=== PATIENT | female | born 1990 | race American Indian/Alaskan Native ===

== ENCOUNTER → 2018-11-12 | Outpatient (CLI) | payer BC ==
[~2018-11-12] MED LIST: CYCL10 PO; HYDACE5325 PO; NAPR500 PO
== END | disposition home or self-care (01) ==
LOC: PLD 10:24 → LAB SHORT 10:24
DX: D22.4 Melanocytic nevi of scalp and neck (principal)
CPT/HCPCS: 88305

== ENCOUNTER → 2019-02-16 | Outpatient (CLI) | payer BC, OTHER | END | disposition home or self-care (01) | LOC: PLD 14:22 → LAB SHORT 14:22 | DX: L91.0 Hypertrophic scar (principal) | CPT/HCPCS: 88305 ==

== ENCOUNTER → 2020-06-09 | Outpatient (CLI) | payer OTHER | END | disposition home or self-care (01) | LOC: LAB SHORT 10:25 → LAB 10:25 | DX: L08.0 Pyoderma (principal) | CPT/HCPCS: 87070; 87077; 87147; 87186; 87205 ==